=== PATIENT | female | born 1985 | race Caucasian/White ===

== ENCOUNTER 2018-02-11 08:33 | Emergency (ER) | payer SELFPAY ==
[~2018-02-11] VITALS: Ht 165.1 cm; Wt 82.0 kg
[2018-02-11 08:37] VITALS: BP 157/89; PULSE 93; RESP 17; TEMP 98.4; O2SAT 99
[2018-02-11] MEDS ORDERED: PENI500T PO (09:08)
[2018-02-11] MEDS ORDERED: IBUP1TAB7 PO (09:08)
[2018-02-11] MEDS ORDERED: KETOROLAC TROMETHAMINE 60 MG/2 ML (IM) VIAL IM ONE (09:15)
[2018-02-11] MEDS ORDERED: ACETAMINOPHEN 500 MG CPLT PO ONE (09:15)
[2018-02-11] MEDS ORDERED: PENICILLIN V POTASSIUM 500 MG TAB PO ONE (09:15)
--- NOTE | 2018-02-11 09:16 | PD ---
HPI Chief Complaint: Oral / Dental Pain or Problem Time Seen by Provider: 09:01 Travel History International Travel<30 days: No Contact w/Intl Traveler<30days: No Traveled to known affect area: No History of Present Illness HPI 33-year-old female presents emergency department with right lower dental pain in the #31 tooth. Patient states it started 4 days ago and has been getting progressively worse. Pain is currently 8 out of 10. She was in using ibuprofen, saline rinses, and ice without improvement. She denies fever, chills, or drainage. No difficulty swallowing. She has no known drug allergies. PFSH Past Medical History Cancer: Yes (cervical) Diminished Hearing: No ?: Not LMP: 4 years ago Past Surgical History Gynecologic Surgery: Yes (cervix removed) Family History Family Myocardial Infarction: Yes Family Hypercholesterolemia: Yes Social History Alcohol Use: No Tobacco Use: Yes (1 ppd) Substance Use: No Allergies-Medications (Allergen,Severity, Reaction): Coded Allergies: No Known Allergies (Unverified , 12/22/12) Reported Meds & Prescriptions Reported Meds & Active Scripts Active Ibuprofen 800 Mg Tab 800 Mg PO Q8H PRN Penicillin V Potassium 500 Mg Tab 1,000 Mg PO Q6H 10 Days Review of Systems Except as stated in HPI: all other systems reviewed are Neg General / Constitutional: No: Fever Eyes: No: Visual changes HENT: Positive: Dental Difficulties, No: Headaches, Lightheadedness, Sore Throat, Rhinitis, Rhinorrhea, Congestion, Nosebleed, Neck Stiffness, Neck Pain, Gingival Bleeding, Ear Discharge, Earache Cardiovascular: No: Chest Pain or Discomfort Respiratory: No: Shortness of Breath Gastrointestinal: No: Abdominal Pain Genitourinary: No: Dysuria Musculoskeletal: No: Pain Skin: No Rash Neurologic: No: Weakness Psychiatric: No: Depression Endocrine: No: Polydipsia Hematologic/Lymphatic: No: Easy Bruising Physical Exam Narrative GENERAL: Patient appears in mild to moderate distress. SKIN: Warm and dry. Normal color. Normal turgor HEAD: Atraumatic. Normocephalic. Mild swelling is noted over the right lower jaw. EYES: Pupils equal and round. No scleral icterus. No injection or drainage. ENT: No nasal bleeding or discharge. Mucous membranes pink and moist. Patient appears to have caries in the right lower #31 tooth. She has mild swelling of the gingival gumline, without obvious abscess. Pharynx is clear. Airway is patent. TMs are clear bilaterally NECK: Trachea midline. Supple and nontender without significant lymphadenopathy. CARDIOVASCULAR: Regular rate and rhythm. RESPIRATORY: No accessory muscle use. Clear to auscultation. Breath sounds equal bilaterally. GASTROINTESTINAL: Abdomen soft, non-tender, nondistended. Hepatic and splenic margins not palpable. MUSCULOSKELETAL: Extremities without clubbing, cyanosis, or edema. No obvious deformities. NEUROLOGICAL: Awake and alert. No obvious cranial nerve deficits. Motor grossly within normal limits. Five out of 5 muscle strength in the arms and legs. Normal speech. PSYCHIATRIC: Appropriate mood and affect; insight and judgment normal. Data Data Last Documented VS Vital Signs Date Time Temp Pulse Resp B/P (MAP) Pulse Ox O2 Delivery O2 Flow Rate FiO2 02/11/18 08:37 98.4 93 17 157/89 (111) 99 Orders Orders Penicillin V Potassium (Veetids) (02/11/18 09:15) Ketorolac Inj (Toradol Inj) (02/11/18 09:15) Acetaminophen (Tylenol) (02/11/18 09:15) MDM Medical Decision Making Medical Screen Exam Complete: Yes Emergency Medical Condition: Yes Differential Diagnosis Dental caries. Dental pain. Dental abscess. Narrative Course Patient is medically stable time exam. Patient is given Toradol 60 mg IM Patient is given acetaminophen 1000 mg p.o. Patient is given her first dose of Pen-Vee K 1000 mg p.o. Patient continued on Pen-Vee K 1000 mg 4 times daily for 10 days. Patient is given ibuprofen 800 mg 3 times daily with food Patient is to take acetaminophen 500 mg 2 tabs every 8 hours as well. Patient follow-up with dental resources as soon as possible. Diagnosis Primary Impression: Pain due to dental caries Referrals: Dentist Patient Instructions: Dental Abscess (ED), Dental Caries (DC), General Instructions Additional Instructions: Patient is given Toradol 60 mg IM Patient is given acetaminophen 1000 mg p.o. Patient is given her first dose of Pen-Vee K 1000 mg p.o. Patient continued on Pen-Vee K 1000 mg 4 times daily for 10 days. Patient is given ibuprofen 800 mg 3 times daily with food Patient is to take acetaminophen 500 mg 2 tabs every 8 hours as well. Patient follow-up with dental resources as soon as possible. Med/Other Pt SpecificInfo: Prescription(s) given Scripts Ibuprofen (Ibuprofen) 800 Mg Tab 800 MG PO Q8H Y for Pain/Inflammation, #30 TAB 0 Refills Prov: Juan J Elizabeth MD 02/11/18 Penicillin V Potassium (Penicillin V Potassium) 500 Mg Tab 1000 MG PO Q6H for Infection for 10 Days, #80 TAB 0 Refills Prov: Juan J Elizabeth MD 02/11/18 Disposition: 01 DISCHARGE HOME Condition: Stable Micha Leger February 11, 2018 09:16
== END 2018-02-11 09:44 | disposition home or self-care (01) ==
LOC: NEPD 08:33
DX: K02.9 Dental caries, unspecified (principal); F17.200 Nicotine dependence, unspecified, uncomplicated
CPT/HCPCS: 96372; 99283; J1885